=== PATIENT | male | born 1950 | race Caucasian/White ===

== ENCOUNTER 2017-02-20 11:25 | Emergency (ER) | payer MEDICARE, BC ==
[2017-02-20] MEDS ORDERED: Sodium Chloride 0.9% 1,000 ML IV ONE (12:43)
[2017-02-20] MEDS ORDERED: Sodium Chloride 0.9% 5 ML Syringe FLUSH PRN (12:43)
[2017-02-20 12:46] LABS: CHLORIDE,CL 100 mmol/L (98-115); SODIUM,NA 138 mmol/L (136-145)
--- NOTE | 2017-02-20 12:54 | EDM.PDOC ---
ED HPI GENERAL MEDICAL PROBLEM - General Chief Complaint: General Stated Complaint: HIGH BLOOD SUGAR Time Seen by Provider: 02/20/17 12:42 Source of Information: Reports: Patient History Limitations: Reports: No Limitations - History of Present Illness INITIAL COMMENTS - FREE TEXT/NARRATIVE: Patient is a 66-year-old gentleman who presents to the ER today with a complaint of weakness and dizziness. Symptoms have been present over the past 2 weeks intermittently. His diabetic medication was recently changed and is having difficulty controlling her glucose. Patient is typically seen in the clinic by Karen. Patient denies chest pain, shortness of breath, abdominal pain , headache, or fever. Onset: Gradual Duration: Week(s): Quality: Reports: Other (Dizziness with standing. Does not occur while lying flat or seated.) Severity: Mild Improves with: Reports: None Worsens with: Reports: None Context: Reports: Activity Associated Symptoms: Reports: Weakness - Related Data Allergies Allergy/AdvReac Type Severity Reaction Status Date / Time bee venom protein (honey bee) Allergy Swelling Verified 02/20/17 12:01 ciprofloxacin Allergy Nausea and Verified 02/20/17 12:13 Vomiting sulfamethoxazole Allergy Nausea and Verified 02/20/17 12:01 [From Bactrim] Vomiting trimethoprim [From Bactrim] Allergy Nausea and Verified 02/20/17 12:01 Vomiting Home Meds: Home Meds Albuterol [Ventolin HFA] 1 puff INH Q6HR PRN 02/20/17 [History] Allopurinol [Zyloprim] 300 mg PO DAILY 02/20/17 [History] Arformoterol [Brovana] 15 mcg NEB BID 02/20/17 [History] Aspirin [[place] Aspirin] 81 mg PO DAILY 02/20/17 [History] Budesonide [Pulmicort] 1 vial INH BID 02/20/17 [History] Ipratropium/Albuterol Sulfate [Iprat-Albut 0.5-3(2.5) MG/3 ML] 1 vial INH Q6HR PRN 02/20/17 [History] Losartan Potassium [Losartan Potassium] 25 mg PO DAILY 02/20/17 [History] Metoprolol Tartrate [Metoprolol Tartrate] 12.5 mg PO BID 02/20/17 [History] Omeprazole [Omeprazole] 20 mg PO BID 02/20/17 [History] Ranitidine HCl [Ranitidine HCl] 300 mg PO DAILY 02/20/17 [History] Simvastatin [Zocor] 40 mg PO DAILY 02/20/17 [History] glipiZIDE [Glipizide Xl] 20 mg PO DAILY 02/20/17 [History] metFORMIN HCl [Metformin HCl] 1,000 mg PO BID 02/20/17 [History] ED ROS GENERAL - Review of Systems Review Of Systems: ROS reveals no pertinent complaints other than HPI. Constitutional: Reports: Weakness, Fatigue HEENT: Reports: No Symptoms Respiratory: Reports: No Symptoms Cardiovascular: Reports: No Symptoms Endocrine: Reports: No Symptoms GI/Abdominal: Reports: No Symptoms : Reports: No Symptoms Musculoskeletal: Reports: No Symptoms Skin: Reports: No Symptoms Neurological: Reports: Dizziness Psychiatric: Reports: No Symptoms Hematologic/Lymphatic: Reports: No Symptoms Immunologic: Reports: No Symptoms ED EXAM, GENERAL - Physical Exam Exam: See Below Exam Limited By: No Limitations General Appearance: Alert, WD/WN, No Apparent Distress Eye Exam: Bilateral Eye: Normal Inspection Ears: Normal External Exam, Normal Canal, Normal TMs Nose: Normal Inspection, Normal Mucosa, No Blood Throat/Mouth: Normal Inspection, Normal Oropharynx, No Airway Compromise Head: Atraumatic, Normocephalic Neck: Normal Inspection, Supple Respiratory/Chest: No Respiratory Distress, Lungs Clear, Normal Breath Sounds, No Accessory Muscle Use, Chest Non-Tender Cardiovascular: Regular Rate, Rhythm, No Murmur GI/Abdominal: Normal Bowel Sounds, Soft, Non-Tender, No Organomegaly, No Distention, No Abnormal Bruit, No Mass Back Exam: Normal Inspection. No: CVA Tenderness (L), CVA Tenderness (R) Extremities: Normal Inspection, No Pedal Edema Neurological: Alert, Oriented, CN II-XII Intact, Normal Cognition, No Motor/ Sensory Deficits Psychiatric: Normal Affect Skin Exam: Warm, Dry, Intact, Normal Color, No Rash Lymphatic: No Adenopathy EKG INTERPRETATION EKG Date: 02/20/17 Time: 12:20 Rhythm: NSR Rate (Beats/Min): 83 [place]: Normal P-Wave: Present QRS: Normal ST-T: Normal QT: Normal Comparison: NA - No Prior EKG Course - Vital Signs Last Recorded V/S: Last Vital Signs Temp 97.7 F 02/20/17 11:52 Pulse 86 02/20/17 11:52 Resp 18 02/20/17 11:52 BP 132/82 02/20/17 11:52 Pulse Ox 93 L 02/20/17 11:52 - Orders/Labs/Meds Orders: Active Orders 24 hr Category Date Time Status EKG Documentation Completion [RC] ASDIRECTED Care 02/20/17 12:10 Active Peripheral IV Care [RC] . DIRECTED Care 02/20/17 12:43 Ordered COMPREHENSIVE METABOLIC PN,CMP [CHEM] Stat Lab 02/20/17 12:20 Received UA W/MICROSCOPIC [URIN] Stat Lab 02/20/17 12:08 Ordered Sodium Chloride 0.9% @ 999 MLS/HR (1000ml) Med 02/20/17 12:43 Ordered Sodium Chloride 0.9% [Normal Saline] 1,000 ml IV .BOLUS Sodium Chloride 0.9% [Syrex Flush] Med 02/20/17 12:43 Ordered 5 ml FLUSH Q8HR PRN Peripheral IV Insertion Adult [OM.PC] Routine Oth 02/20/17 12:43 Ordered EKG 12 Lead [EK] Routine Ther 02/20/17 12:09 Ordered Medication Orders Sodium Chloride (Syrex Flush) 5 ml FLUSH Q8HR PRN PRN Reason: Keep Vein Open Labs: Laboratory Tests 02/20/17 02/20/17 Range/Units 11:49 12:20 WBC 9.9 (5.0-10.0) 10^3/uL RBC 4.82 (4.50-6.00) 10^6/uL Hgb 14.4 (13.0-17.0) g/dL Hct 43.4 (40.0-52.0) % MCV 90.1 (82.0-92.0) fL MCH 29.8 (27.0-31.0) pg MCHC 33.1 (32.0-36.0) g/dL RDW 13.8 (11.5-14.5) % Plt Count 409 H (150-300) 10^3/uL MPV 7.5 (7.4-10.4) fL Neut % (Auto) 71.6 H (50.0-70.0) % Lymph % (Auto) 18.2 L (20.0-40.0) % [place] % (Auto) 6.6 (2.0-8.0) % Eos % (Auto) 3.3 H (1.0-3.0) % Baso % (Auto) 0.3 (0.0-1.0) % Neut # (Auto) 7.1 H (2.5-7.0) 10^3/uL Lymph # (Auto) 1.8 (1.0-4.0) 10^3/uL Haakon # (Auto) 0.7 (0.1-0.8) 10^3/uL Eos # (Auto) 0.3 (0.1-0.3) 10^3/uL Baso # (Auto) 0.0 (0.0-0.1) 10^3/uL POC Glucose 212 H (74-106) mg/dl Meds: Medications Generic Name Dose Route Start Last Admin Trade Name Freq PRN Reason Stop Dose Admin Sodium Chloride 1,000 mls @ 999 mls/hr 02/20/17 12:43 Normal Saline IV 02/20/17 13:43 .BOLUS ONE Sodium Chloride 5 ml 02/20/17 12:43 Syrex Flush FLUSH Q8HR PRN Keep Vein Open - Re-Assessments/Exams Free Text/Narrative Re-Assessment/Exam: 02/20/17 13:25 Patient afebrile, vital signs stable, nontoxic appearing. Patient was given 1 L normal saline IV. Accu-Chek now 165 glucose. Discussed with patient most likely side effects of glipizide. To include dizziness and fatigue. Patient will follow up with Karen next week. 02/20/17 13:31 Departure - Departure Time of Disposition: 13:37 Disposition: Home, Self-Care 01 Condition: Good Clinical Impression: Hyperglycemia Diabetes mellitus Qualifiers: Diabetes mellitus type: type 2 Diabetes mellitus complication status: without complication - Discharge Information Instructions: Type 2 Diabetes Mellitus, Adult, Hyperglycemia, [id number] Referrals: Karen Hollingsworth PA-C [Primary Care Provider] - Additional Instructions: FOLLOW UP WITH KAREN NEXT WEEK. RETURN TO ER SOONER IF SYMPTOMS CONTINUE - My Orders Last 24 Hours: My Active Orders 02/20/17 12:08 UA W/MICROSCOPIC [URIN] Stat 02/20/17 12:09 EKG 12 Lead [EK] Routine 02/20/17 12:10 EKG Documentation Completion [RC] ASDIRECTED 02/20/17 12:20 COMPREHENSIVE METABOLIC PN,CMP [CHEM] Stat 02/20/17 12:43 Peripheral IV Care [RC] . DIRECTED Sodium Chloride 0.9% @ 999 MLS/HR (1000ml) Sodium Chloride 0.9% [Normal Saline] 1,000 ml IV .BOLUS Sodium Chloride 0.9% [Syrex Flush] 5 ml FLUSH Q8HR PRN Peripheral IV Insertion Adult [OM.PC] Routine - Assessment/Plan Last 24 Hours: My Active Orders 02/20/17 12:08 UA W/MICROSCOPIC [URIN] Stat 02/20/17 12:09 EKG 12 Lead [EK] Routine 02/20/17 12:10 EKG Documentation Completion [RC] ASDIRECTED 02/20/17 12:20 COMPREHENSIVE METABOLIC PN,CMP [CHEM] Stat 02/20/17 12:43 Peripheral IV Care [RC] . DIRECTED Sodium Chloride 0.9% @ 999 MLS/HR (1000ml) Sodium Chloride 0.9% [Normal Saline] 1,000 ml IV .BOLUS Sodium Chloride 0.9% [Syrex Flush] 5 ml FLUSH Q8HR PRN Peripheral IV Insertion Adult [OM.PC] Routine Assessment:: Hyperglycemia. Diabetes mellitus.
== END 2017-02-20 13:55 | disposition home or self-care (01) ==
LOC: KA.ED 11:25
DX: E11.65 Type 2 diabetes mellitus with hyperglycemia (principal); Z79.84 Long term (current) use of oral hypoglycemic drugs; Z79.82 Long term (current) use of aspirin; Z79.899 Other long term (current) drug therapy; Z88.1 Allergy status to other antibiotic agents; Z88.2 Allergy status to sulfonamides; Z88.8 Allergy status to other drugs, medicaments and biological substances; Z91.030 Bee allergy status
CPT/HCPCS: 36415; 80053; 81001; 82962; 85025; 99285; J7030; 93005; 99284

== ENCOUNTER 2018-07-18 15:52 | Inpatient (IN) | payer MEDICARE, BC ==
[2018-07-18 16:38] LABS: O2 DELIVERY DEVICE NASAL CANNULA
[2018-07-18 16:45] LABS: BASE EXCESS ARTERIAL -1 mmol/L (-2-3); BICARBONATE,ARTERIAL 23.2 mmol/L (22-26); O2 SATURATION ARTERIAL 84 % (95-98); PCO2 ARTERIAL 36 mmHG (35-45); PO2 ARTERIAL 48 mmHG (80-105)
[2018-07-18] MEDS ORDERED: Albuterol/Ipratropium 3.0-0.5 MG/3 ML Neb Soln INH PRN (16:46)
[2018-07-18] MEDS ORDERED: Albuterol 8 GM Inhaler INH PRN (16:46)
[2018-07-18] MEDS ORDERED: Non-Formulary Medication 1 Each (Ciclopirox [Ciclopirox] 1 APPLIC) TOP SCH (17:00)
[2018-07-18] MEDS ORDERED: Sodium Chloride 0.9% 50 ML IV SCH ×2 (17:00→17:30)
[2018-07-18] MEDS ORDERED: Azithromycin 500 MG in Sodium Chloride 0.9% 250 ML IV SCH (17:00)
[2018-07-18 17:07] LABS: ANION GAP 17.7 mmol/L (5-15); CHLORIDE,CL 97 mmol/L (98-115); SODIUM,NA 138 mmol/L (136-145)
[2018-07-18] MEDS: methylPREDNISolone Sodium Succinate 125 MG/2 ML SDV IVPUSH SCH (17:45)
[2018-07-18] MEDS: metFORMIN 500 MG Tab PO SCH (18:07)
[2018-07-18] MEDS: Piperacillin/Tazobactam/Dext 3.375 GM in Premix Bag 1 BAG IV SCH (19:16)
[2018-07-18] MEDS: Arformoterol 15 MCG/2 ML Neb Soln NEB SCH (19:59)
--- NOTE | 2018-07-18 20:30 | CT ---
[id number] CT/CT Chest WO IV EXAM: CT Chest WO IV CLINICAL DATA: COPD,HYPOXIA. COMPARISON: Radiograph from June 27, 2018 FINDINGS: LUNGS: Changes of COPD, including both parenchymal emphysema and chronic bronchitis. Scattered areas of pleural/parenchymal scarring. No suspicious nodularity. No pneumonia, effusion, edema, or pneumothorax. HEART AND GREAT VESSELS: Coronary artery atherosclerosis. No pericardial effusion. Thoracic aorta atherosclerosis. No aneurysm. Mild central vascular congestion. MEDIASTINUM AND LYMPHATICS: No mediastinal or hilar lymphadenopathy. UPPER ABDOMINAL ORGANS: Gallbladder has been resected. BONES: Diffuse bone demineralization. Scattered changes of mild to moderate spondylosis diffusely throughout the spine. No fracture or osseous lesion. IMPRESSION: Changes of COPD, described above. No suspicious parenchymal nodularity. Dioni Kern MD 07/18/182026 Thank you for allowing us to participate in the care of your patient.
[2018-07-18] MEDS: Sodium Chloride 0.9% 250 ML IV SCH (20:34)
[2018-07-18] MEDS: Metoprolol Tartrate 25 MG Tab PO SCH (20:35)
[2018-07-18] MEDS: Allopurinol 100 MG Tab PO SCH (20:35)
[2018-07-18] MEDS: Budesonide 0.5 MG/2 ML Neb Susp INH SCH (20:39)
[2018-07-18] MEDS ORDERED: Omeprazole 20 MG Cap.CR PO SCH (21:00)
[2018-07-19] MEDS: methylPREDNISolone Sodium Succinate 125 MG/2 ML SDV IVPUSH SCH ×3 (00:40→17:13)
[2018-07-19] MEDS: Piperacillin/Tazobactam/Dext 3.375 GM in Premix Bag 1 BAG IV SCH ×4 (00:48→18:29)
[2018-07-19] MEDS: Sodium Chloride 0.9% 10 ML Syringe FLUSH PRN ×4 (00:49→17:14)
[2018-07-19] MEDS: Omeprazole 20 MG Cap.CR PO SCH (06:08)
[2018-07-19] MEDS: metFORMIN 500 MG Tab PO SCH ×2 (08:09→18:29)
[2018-07-19] MEDS: glipiZIDE 5 MG Tab.ER PO SCH (08:09)
[2018-07-19] MEDS: Aspirin 81 MG Tab.EC PO SCH (08:09)
[2018-07-19] MEDS: Simvastatin 20 MG Tab PO SCH (08:09)
[2018-07-19] MEDS: Losartan 25 MG Tab PO SCH (08:10)
[2018-07-19] MEDS: Metoprolol Tartrate 25 MG Tab PO SCH ×2 (08:10→20:31)
[2018-07-19 08:19] LABS: CHLORIDE,CL 98 mmol/L (98-115); SODIUM,NA 128 mmol/L (136-145)
[2018-07-19] MEDS: Arformoterol 15 MCG/2 ML Neb Soln NEB SCH ×2 (08:42→19:46)
[2018-07-19] MEDS ORDERED: Allopurinol 100 MG Tab PO SCH (09:00)
[2018-07-19] MEDS: Budesonide 0.5 MG/2 ML Neb Susp INH SCH ×2 (09:16→20:15)
[2018-07-19] MEDS: Sodium Chloride 0.9% 250 ML IV SCH (20:22)
[2018-07-19] MEDS: Allopurinol 100 MG Tab PO SCH (20:31)
[2018-07-20] MEDS: Piperacillin/Tazobactam/Dext 3.375 GM in Premix Bag 1 BAG IV SCH ×4 (01:32→18:27)
[2018-07-20] MEDS: methylPREDNISolone Sodium Succinate 125 MG/2 ML SDV IVPUSH SCH ×3 (01:37→17:00)
[2018-07-20] MEDS: Sodium Chloride 0.9% 10 ML Syringe FLUSH PRN ×4 (06:48→17:00)
[2018-07-20 07:53] LABS: O2 DELIVERY DEVICE NASAL CANNULA
[2018-07-20] MEDS: Omeprazole 20 MG Cap.CR PO SCH (07:56)
[2018-07-20 08:07] LABS: ANION GAP 17.9 mmol/L (5-15); CHLORIDE,CL 100 mmol/L (98-115); SODIUM,NA 140 mmol/L (136-145)
[2018-07-20 08:19] LABS: BICARBONATE,ARTERIAL 25.9 mmol/L (22-26); O2 SATURATION ARTERIAL 99 % (95-98); PCO2 ARTERIAL 40 mmHG (35-45); PO2 ARTERIAL 115 mmHG (80-105)
[2018-07-20 08:20] LABS: BASE EXCESS ARTERIAL 1 mmol/L (-2-3); O2 FLOW RATE 3 L/min
[2018-07-20] MEDS: Arformoterol 15 MCG/2 ML Neb Soln NEB SCH ×2 (08:33→20:34)
[2018-07-20] MEDS: Losartan 25 MG Tab PO SCH (08:38)
[2018-07-20] MEDS: metFORMIN 500 MG Tab PO SCH ×2 (08:38→18:27)
[2018-07-20] MEDS: glipiZIDE 5 MG Tab.ER PO SCH (08:38)
[2018-07-20] MEDS: Aspirin 81 MG Tab.EC PO SCH (08:38)
[2018-07-20] MEDS: Simvastatin 20 MG Tab PO SCH (08:38)
[2018-07-20] MEDS: Metoprolol Tartrate 25 MG Tab PO SCH ×2 (08:39→20:29)
[2018-07-20] MEDS: Budesonide 0.5 MG/2 ML Neb Susp INH SCH ×2 (09:00→20:53)
[2018-07-20] MEDS: Loperamide 2 MG Cap PO PRN (11:00)
[2018-07-20] MEDS: Sodium Chloride 0.9% 250 ML IV SCH (19:26)
[2018-07-20] MEDS: Allopurinol 100 MG Tab PO SCH (20:29)
[2018-07-21] MEDS: methylPREDNISolone Sodium Succinate 125 MG/2 ML SDV IVPUSH SCH ×2 (00:35→08:51)
[2018-07-21] MEDS: Piperacillin/Tazobactam/Dext 3.375 GM in Premix Bag 1 BAG IV SCH ×2 (00:35→06:29)
[2018-07-21] MEDS: Omeprazole 20 MG Cap.CR PO SCH (06:36)
[2018-07-21] MEDS: Sodium Chloride 0.9% 10 ML Syringe FLUSH PRN (07:43)
[2018-07-21 08:02] LABS: CHLORIDE,CL 99 mmol/L (98-115); SODIUM,NA 137 mmol/L (136-145)
[2018-07-21] MEDS: Budesonide 0.5 MG/2 ML Neb Susp INH SCH (08:33)
[2018-07-21] MEDS: Losartan 25 MG Tab PO SCH (08:33)
[2018-07-21] MEDS: glipiZIDE 5 MG Tab.ER PO SCH (08:33)
[2018-07-21] MEDS: Arformoterol 15 MCG/2 ML Neb Soln NEB SCH (08:46)
[2018-07-21] MEDS: Loperamide 2 MG Cap PO PRN (08:46)
[2018-07-21] MEDS: Aspirin 81 MG Tab.EC PO SCH (08:47)
[2018-07-21] MEDS: Metoprolol Tartrate 25 MG Tab PO SCH (08:49)
[2018-07-21] MEDS: metFORMIN 500 MG Tab PO SCH (08:50)
[2018-07-21] MEDS: Simvastatin 20 MG Tab PO SCH (08:54)
--- NOTE | 2018-07-21 09:21 | PN ---
07/19/2018 PATIENT NAME: MAITE KEARNS SUBJECTIVE: This is a 67-year-old male who was admitted yesterday for a COPD exacerbation. The patient was having a hard time getting enough air. He was hypoxic but not hypercapnic. His ABG showed a pH of 7.41, pCO2 of 36, PO2 of 48, bicarb of 23 and ABG O2 saturation of 84%. He is currently on 2 L of oxygen and saturating at 97%. He is much less short of breath. And does not feel that he is as wheezy as he was yesterday. His white count was elevated. We do have blood cultures as well as sputum culture pending. He has been covered with one dose of azithromycin as well as vancomycin and Zosyn. White count yesterday was 15,000, today is 9000. Hemoglobin has dropped from 14-12.8. He does not typically have an anemia. We will watch this tomorrow to see if it is trending downward. If so, we will add iron studies. His comprehensive metabolic panel shows sodium of 128, whereas yesterday it was 138. The lactic acid yesterday was 3.6, which is somewhat concerning. Glucose is 285. He is diabetic and is covered with metformin as well as glipizide. He does report about a 50% improvement from yesterday. He is also receiving Solu- Medrol 125 mg IV t.i.d. This will be continued. OBJECTIVE: VITAL SIGNS: Temp 97.8, pulse 81, respirations 16, blood pressure 123/79, O2 saturation is 95-97% on 3 L of oxygen. Of note, an improvement in his pulse rate, he was tachycardic yesterday with a pulse rate of 130s to 140s. Today, he has a normal heart rate of 80. SKIN: Warm and dry to touch. CARDIAC: Reveals S1, S2 to be normal. Rate and rhythm are regular. No murmur, click, or gallop is auscultated. LUNGS: Clear without rales, wheezes, or rhonchi. There is no pedal edema. IMPRESSION: Exacerbation of chronic obstructive pulmonary disease. Question infective. He will continue on Zosyn as well as vancomycin. He will also continue on Solu-Medrol. Blood cultures as well as sputum cultures are pending. He does have an elevated lactate of 3.6. This will be repeated tomorrow. Also repeat ABGs tomorrow. He does seem to be improving. PLAN: Plan is to keep him through the weekend and possibly discharge him on Saturday. He is agreeable with this plan of care. I will contact his daughter Dori to give her an update on the patient's progress. /[id number]/MODL
--- NOTE | 2018-07-21 09:21 | PN ---
07/20/2018 PATIENT NAME: MAITE KEARNS This is a 67-year-old male who is being seen today for inpatient rounds. He was admitted to the hospital on 07/18/2018, for exacerbation of COPD. He was placed on intravenous steroids as well as IV antibiotics namely Zosyn as well as vancomycin. His blood cultures have been negative x2. He is improving. He does feel a little bit more wheezy today, however, feels less short of breath. He is tolerating periods of activity with ambulating in the hallways. He is oxygenating well on 3 L of oxygen. He did have repeat ABGs this morning, which have improved considerably from his admission ABGs. We actually decreased his oxygen to 2 L/minute on nasal cannula. ABGs today showed pH 7.42, pCO2 of 40, PO2 of 115 (previously 48), bicarb was 27 and ABG O2 saturation was 99%. He does have an elevated white count today. I believe that this is related to his intravenous steroids. His white count was slightly elevated at 15,000 on admission and normalized yesterday to 9300. Today, his white count is 17,870. I do believe this is steroid related. He has not had a fever whatsoever. He did have a vancomycin trough today that was 15.1, which is therapeutic. His initial lactic acid was 3.6 and now has improved to 2.7. CMP is basically normal with the exception of an elevated glucose. The patient does have a history of diabetes mellitus. The patient is concerned that he has developed diarrhea. He has had 4 loose stools during the night. There is no blood in the stools. I am not sure why he has developed diarrhea, but did add a C. diff as well as a Hemoccult of the stool today. PHYSICAL EXAMINATION: VITAL SIGNS: Show temp of 96, pulse of 82, respirations 18, blood pressure 128/72, O2 saturation is 95% on 2 L of oxygen. SKIN: Warm and dry to touch. CARDIAC: Reveals S1, S2 to be normal. Rate and rhythm are regular. No murmur, click, or gallop is auscultated. LUNGS: Do have diffuse wheezing. No rhonchi or rales. ABDOMEN: Soft, nontender with hyperactive bowel sounds. There is no pedal edema. IMPRESSION: 1. Exacerbation of chronic obstructive pulmonary disease. He has been covered with antibiotics with negative blood cultures to date. We reduce his Solu- Medrol from 125 mg t.i.d. to 80 mg t.i.d. intravenously. He does seem to be improving. Barring any changes in the patient's status, we will plan on discharging him home tomorrow. He is oxygenating much better than he was 2 days ago. 2. Diabetes mellitus. His blood sugars have been elevated. His most recent A1c was 7.9%. This was in 04/2018. We will continue to monitor this. His glucose levels will most likely be elevated for the short term due to steroids. 3. Diarrhea. Hemoccult of the diarrhea stool was negative. C. difficile was also negative. He may have p.r.n. Imodium for symptomatic relief. We will continue to watch him closely. We will repeat labs in the morning and plan for discharge barring any changes in his condition. /[id number]/MODL
--- NOTE | 2018-07-21 09:21 | PN ---
07/19/2018 PATIENT NAME: MAITE KEARNS ADDENDUM: He did have a CT of the chest yesterday, which shows diffuse bone demineralization, scattered changes of mild to moderate spondylosis diffusely through the spine. There is no suspicious nodularity. No pneumonia, effusion, edema, or pneumothorax. There are overall changes of COPD, including both parenchymal emphysema and chronic bronchitis. There are scattered areas of pleural/parenchymal scarring. I have communicated my findings to Dr. Jayde Mendoza and will see if she has any suggestions for changes or additions to care. /[id number]/MODL
--- NOTE | 2018-07-22 09:13 | DISCH ---
DISCHARGE DIAGNOSIS: 1. Chronic obstructive pulmonary disease exacerbation, considerably improved with IV steroids as well as antibiotics. He will need no further antibiotic therapy as his blood cultures were negative x2. He did have an influenza nasopharyngeal swab which was negative on admission as well. He will be sent home with a tapering dose of prednisone to be started at 60 mg daily for three days, then 40 mg daily for three days, then 20 mg daily for three days, followed by 10 mg for three days, and then stop. He will follow up with me in the clinic in one week's time. He will follow up sooner if needed. 2. Diabetes mellitus. His glucose readings have been elevated secondary to steroids. 3. Diarrhea. This is improved. 4. Gastroesophageal reflux disease, stable. 5. History of gout, stable with allopurinol. 6. Hypercholesterolemia, stable with simvastatin. 7. Hypertension, stable on a combination regimen of losartan as well as metoprolol. HOSPITAL COURSE: This is a 67-year-old male who was admitted to the hospital on 07/18/2018 for a COPD exacerbation. He was treated with one dose of azithromycin and then later changed to Zosyn as well as vancomycin. All blood cultures have been negative. He has been afebrile. He will be discharged today without any additional antibiotic therapy. He was treated with intravenous steroids. His condition has improved considerably. He still has some wheezing and some coughing; however, he is no longer hypoxic. PHYSICAL EXAM ON DISCHARGE: VITAL SIGNS: On examination, temp is 98.3, pulse 81, respirations 18, blood pressure 127/80, and his O2 saturation is 94% on room air. SKIN: Warm and dry to touch. CARDIAC: Exam reveals S1, S2 to be normal. Rate and rhythm are regular. No murmur, click, or gallop is auscultated. LUNGS: He does have inspiratory as well as expiratory wheezes throughout all lung gentile. He does not have any rales or rhonchi. ABDOMEN: Soft, nontender with positive bowel sounds in all four quadrants. EXTREMITIES: There is no pedal edema. SIGNIFICANT LABS XRAYS AND CONSULTATION FINDINGS: Significant lab data from today, his white blood cell count is elevated at 15,800. I believe this is steroid related. He did have an elevated white count of 15,140 on admission which corrected the next day to 9310 and then went up again on 07/20/2018. I do believe this is related, as stated earlier, to steroids. ABGs improved considerably. We were able to titrate his oxygen from 3 L/minute to 2 L/minute. The remainder of his labs are stable. He does have elevated glucose readings also secondary to steroids. The patient had diarrhea yesterday. The diarrhea stools were Hemoccult negative. C. difficile was also negative. We did give him Imodium with some improvement of the diarrhea. /[id number]/MODL
== END 2018-07-21 12:15 | disposition home or self-care (01) | DRG 192 ==
LOC: KA.OC 15:52 → KA.MS 16:10
DX: J44.1 Chronic obstructive pulmonary disease with (acute) exacerbation (principal); E11.9 Type 2 diabetes mellitus without complications; R05 Cough; R06.2 Wheezing; M10.9 Gout, unspecified; I10 Essential (primary) hypertension; K21.9 Gastro-esophageal reflux disease without esophagitis; E78.00 Pure hypercholesterolemia, unspecified; R09.02 Hypoxemia; T38.0X5A Adverse effect of glucocorticoids and synthetic analogues, initial encounter; D72.829 Elevated white blood cell count, unspecified; R19.7 Diarrhea, unspecified; Z88.1 Allergy status to other antibiotic agents; Z91.030 Bee allergy status; Z79.899 Other long term (current) drug therapy; Z79.82 Long term (current) use of aspirin; Z79.84 Long term (current) use of oral hypoglycemic drugs
CPT/HCPCS: 36415; 36600; 71250; 80053; 80202; 82272; 82803; 83605; 85025; 87040; 87324; 87804; 94640; A9270-GY; J0456; J2543; J2930; J3370; J7050

== ENCOUNTER 2019-01-12 12:32 | Observation (INO) | payer MEDICARE, BC ==
[2019-01-12] MEDS ORDERED: Dextrose 5%-0.45% NaCl 1,000 ML IV SCH (12:45)
[2019-01-12] MEDS ORDERED: Sodium Chloride 0.9% 10 ML Syringe FLUSH PRN (12:45)
[2019-01-12] MEDS ORDERED: Albuterol/Ipratropium 3.0-0.5 MG/3 ML Neb Soln INH PRN (12:49)
[2019-01-12] MEDS ORDERED: Albuterol 8 GM Inhaler INH PRN ×2 (12:49)
[2019-01-12] MEDS ORDERED: Non-Formulary Medication 1 Each (Ciclopirox [Ciclopirox] 1 APPLIC) TOP SCH (13:00)
[2019-01-12 13:30] LABS: ANION GAP 20.2 mmol/L (5-15)
[2019-01-12] MEDS ORDERED: Iopamidol 755 Mg/ML 100 ML Bottle IV ONE ×2 (13:49→14:12)
[2019-01-12] MEDS ORDERED: Sodium Chloride 0.9% 50 ML IV SCH ×2 (14:00→14:15)
[2019-01-12] MEDS ORDERED: Diatrizoate Meglumine/Diatrizoate Sodium 37% 120 ML Bottle PO ONE (14:12)
[2019-01-12] MEDS ORDERED: Sodium Chloride 0.9% 500 ML IV SCH (14:30)
--- NOTE | 2019-01-12 14:53 | CT ---
[id number] CT/CT Abdomen Pelvis W IV EXAM: ABDOMEN AND PELVIS CT WITH CONTRAST INDICATION: Abdominal pain. COMPARISON: None. DISCUSSION: 9 mm nonobstructing calculus lower pole right kidney and 2 mm nonobstructing calculus upper pole right kidney. Wedge-shaped defects in the right kidney may relate to prior infection or infarcts. Atherosclerotic plaque scattered throughout the aorta and its major branches with partially characterized stenosis of the external iliac and common femoral arteries bilaterally. Fatty infiltration of the liver. Cholecystectomy. A few scattered pancreatic calcifications could relate to underlying chronic pancreatitis. There are few scattered colonic diverticula without evidence of diverticulitis. Small fat-containing bilateral inguinal hernias. The adrenal glands, spleen, and small bowel are normal in appearance. The appendix is not identified, but reportedly has been removed. IMPRESSION: 1. No acute findings or definite explanation for abdominal pain. 2. Multiple chronic findings as described. Miguelangel Monte MD 01/12/19 [id number] Thank you for allowing us to participate in the care of your patient.
[2019-01-12] MEDS: Sodium Chloride 0.9% 1,000 ML IV SCH (16:31)
[2019-01-12] MEDS: Metoprolol Tartrate 25 MG Tab PO SCH (20:16)
[2019-01-12] MEDS: Budesonide 0.5 MG/2 ML Neb Susp INH SCH (20:17)
[2019-01-12] MEDS ORDERED: Allopurinol 100 MG Tab PO SCH (21:00)
[2019-01-13] MEDS: Sodium Chloride 0.9% 1,000 ML IV SCH (00:10)
[2019-01-13] MEDS ORDERED: Omeprazole 20 MG Cap.CR PO SCH (07:30)
[2019-01-13] MEDS: Metoprolol Tartrate 25 MG Tab PO SCH (08:58)
[2019-01-13] MEDS ORDERED: glipiZIDE 5 MG Tab.ER PO SCH (09:00)
[2019-01-13] MEDS ORDERED: Terbinafine 250 MG Tab PO SCH ×2 (09:00)
[2019-01-13] MEDS ORDERED: Losartan 25 MG Tab PO SCH (09:00)
[2019-01-13] MEDS ORDERED: Simvastatin 20 MG Tab PO SCH (09:00)
[2019-01-13] MEDS ORDERED: Aspirin 81 MG Tab.EC PO SCH (09:00)
[2019-01-13] MEDS ORDERED: Cholecalciferol (Vitamin D3) 25 MCG Tab PO SCH (09:00)
[2019-01-13] MEDS ORDERED: [UNRECOGNIZED DRUG - REMARK] PO SCH (09:00)
[2019-01-13 09:14] LABS: ANION GAP 12.8 mmol/L (5-15); CHLORIDE,CL 104 mmol/L (98-115); SODIUM,NA 140 mmol/L (136-145)
[2019-01-13] MEDS ORDERED: Sodium Chloride 0.9% Inhalation Soln 3 ML Neb ONE (09:18)
[2019-01-13] MEDS: Budesonide 0.5 MG/2 ML Neb Susp INH SCH (10:05)
[2019-01-13] MEDS ORDERED: Budesonide 0.5 MG/2 ML Neb Susp NEB SCH (20:00)
[2019-01-13] MEDS ORDERED: Arformoterol 15 MCG/2 ML Neb Soln INH SCH (20:00)
--- NOTE | 2019-01-14 10:07 | DISCH ---
HOSPITAL COURSE: This is a 68-year-old male who was admitted yesterday with gastroenteritis as well as dehydration. He has received intravenous fluids over the course of the past 24 hours and has responded nicely. White count was elevated on admission at 11.59, now normalized at 8.43. BUN was normal yesterday at 22, creatinine was elevated at 1.22. Potassium was elevated at 5.8. These values were thought to be elevated secondary to dehydration. The patient's potassium has normalized today at 4.7. BUN and creatinine are normal at 14 and 0.89 with a GFR of greater than 50. The patient is feeling better. Apparently has a family member who is not doing well from a medical standpoint. The patient would like to be available to be with him if his health takes a turn for the worst. The patient had a CT of the abdomen yesterday, which shows no acute findings or definite explanation for abdominal pain. There were some multiple chronic findings including a 9 mm nonobstructing calculus lower pole of the kidney in 2 mm obstructive calculus upper pole of the right kidney. He does have a fatty infiltration of the liver. He has had a cholecystectomy in the past. There were a few scattered colonic diverticula without evidence of diverticulitis. The patient has been eating well and drinking well also. He did have some nausea yesterday following the CT scan, however, has had no nausea, vomiting, or diarrhea since admission. The patient does have a history of diabetes mellitus and is taking both glipizide and metformin. His metformin has been held for [address] scan. PHYSICAL EXAMINATION: VITAL SIGNS: On examination, temp is 98, pulse 85, respirations 20, blood pressure 125/77, oxygen saturation is 99%. The patient does use oxygen continuously at home. SKIN: Warm and dry to touch. CARDIAC: Reveals S1 and S2 to be normal. Rate and rhythm are regular. No murmur, click, or gallop is auscultated. LUNGS: Clear without rales, wheezes, or rhonchi. ABDOMEN: Soft, nontender. Bowel sounds present in all four quadrants. There is no pedal edema. IMPRESSION: 1. Gastroenteritis with dehydration, improved with normalization of elevated lab values from yesterday, namely renal function and potassium. 2. Diabetes mellitus, well controlled. 3. Chronic obstructive pulmonary disease. He will continue his same chronic obstructive pulmonary disease regimen as before. 4. Gastroesophageal reflux disease. He will continue PPI therapy as before. 5. Hypertension, stable. He will continue losartan. He was instructed to drink plenty of fluids. He will hold his metformin until tomorrow morning. At that point, he can resume taking metformin as before. He will follow up with me in 7-10 days in the clinic. There were no changes in his home medications. /[id number]/MODL
[2019-01-14] MEDS ORDERED: metFORMIN 500 MG Tab PO SCH (18:00)
== END 2019-01-13 13:15 | disposition home or self-care (01) ==
LOC: KA.MS 12:36 → UNDOADMOB 12:36 → KA.MS 12:45
DX: K52.9 Noninfective gastroenteritis and colitis, unspecified (principal); E86.0 Dehydration; E87.5 Hyperkalemia; I10 Essential (primary) hypertension; E11.9 Type 2 diabetes mellitus without complications; E78.00 Pure hypercholesterolemia, unspecified; E55.9 Vitamin D deficiency, unspecified; J44.9 Chronic obstructive pulmonary disease, unspecified; K21.9 Gastro-esophageal reflux disease without esophagitis; K76.0 Fatty (change of) liver, not elsewhere classified; K57.30 Diverticulosis of large intestine without perforation or abscess without bleeding; N20.0 Calculus of kidney; Z88.1 Allergy status to other antibiotic agents; Z91.030 Bee allergy status; Z99.81 Dependence on supplemental oxygen; Z87.891 Personal history of nicotine dependence; Z79.84 Long term (current) use of oral hypoglycemic drugs; Z79.51 Long term (current) use of inhaled steroids; Z79.82 Long term (current) use of aspirin; Z79.899 Other long term (current) drug therapy
CPT/HCPCS: 36415; 74177; 80053; 85025; 94640; 96360; 96361; A9270-GY; G0378; J7030; J7040; J7050; Q9963; Q9967

== ENCOUNTER 2019-02-16 12:48 | Observation (INO) | payer MEDICARE, BC ==
[2019-02-16] MEDS ORDERED: Sodium Chloride 0.9% 10 ML Syringe FLUSH PRN (13:04)
[2019-02-16] MEDS ORDERED: Albuterol 8 GM Inhaler INH PRN (13:57)
[2019-02-16] MEDS: Sodium Chloride 0.9% 1,000 ML IV SCH ×2 (14:00→22:04)
--- NOTE | 2019-02-16 14:07 | CR ---
[id number] RAD/RAD Chest PA And Lateral EXAM: RAD Chest PA And Lateral INDICATION: SHORTNESS OF BREATH. COMPARISON: Chest CT from July 18, 2018. Radiograph from June 27, 2018. DISCUSSION: Cardiomediastinal silhouette is normal in size and contour. COPD. No infiltrate, effusion, pneumothorax, or edema. IMPRESSION: No acute findings or significant change from the prior examination. Dioni Kern MD 02/16/19 1403 Thank you for allowing us to participate in the care of your patient.
[2019-02-16 14:21] LABS: ANION GAP 18.5 mmol/L (5-15); CHLORIDE,CL 104 mmol/L (98-115); SODIUM,NA 145 mmol/L (136-145)
[2019-02-16] MEDS: METFORMIN HCL 1000 MG PO SCH (17:54)
[2019-02-16] MEDS: METOPROLOL TARTRATE 25 MG PO SCH (20:22)
[2019-02-16] MEDS: BUDESONIDE INH SCH (20:28)
[2019-02-16] MEDS: ARFORMOTEROL 15 MCG/2 ML INH SCH (20:28)
[2019-02-16] MEDS ORDERED: SIMVASTATIN 40 MG PO SCH (21:00)
[2019-02-16] MEDS ORDERED: MELATONIN 3 MG PO SCH (21:00)
[2019-02-16] MEDS ORDERED: ALLOPURINOL 300 MG PO SCH (21:00)
[2019-02-17] MEDS ORDERED: Ondansetron 4 MG Tab.DIS PO PRN (03:00)
[2019-02-17] MEDS: ARFORMOTEROL 15 MCG/2 ML INH SCH (07:35)
[2019-02-17] MEDS: METFORMIN HCL 1000 MG PO SCH (08:00)
[2019-02-17] MEDS: BUDESONIDE INH SCH (08:33)
[2019-02-17] MEDS ORDERED: OMEPRAZOLE 20 MG PO SCH (09:00)
[2019-02-17] MEDS ORDERED: Aspirin 81 MG Tab.EC PO SCH (09:00)
[2019-02-17] MEDS ORDERED: LOSARTAN 25 MG PO SCH (09:00)
[2019-02-17] MEDS ORDERED: Cholecalciferol (Vitamin D3) 25 MCG Tab PO SCH (09:00)
[2019-02-17] MEDS ORDERED: GLIPIZIDE 10 MG PO SCH (09:00)
[2019-02-17] MEDS ORDERED: TERBINAFINE HCL 250 MG PO SCH (09:00)
[2019-02-17] MEDS: METOPROLOL TARTRATE 25 MG PO SCH (09:01)
--- NOTE | 2019-02-18 12:13 | DISCH ---
HOSPITAL COURSE: This is a 68-year-old male, who was admitted to the hospital yesterday with increasing shortness of breath, dull chest pain, and lightheadedness. The patient had been feeling this way over the past weekend. The patient was clinically dehydrated. He did receive intravenous fluids overnight and does feel better today. He reports being nauseated through the night. He did receive ondansetron which was effective, but took over an hour to start working. The patient and I discussed him being on observation and possibly going home today if he felt better and he would like to continue with this plan. Chest x-ray and EKG from yesterday were stable. Labs from yesterday were stable as well with a normal troponin. Labs were not repeated today as all of his labs were normal on admission yesterday. PHYSICAL EXAMINATION: VITAL SIGNS: He is afebrile, pulse is 82, respirations 16, blood pressure 100/70, O2 saturation is 93% on 2 L of oxygen per nasal cannula. SKIN: Warm and dry to touch. CARDIAC: Reveals S1, S2 to be normal. Rate and rhythm are regular. No murmur, click, or gallop auscultated. LUNGS: Clear without rales, wheezes, or rhonchi. ABDOMEN: Soft, nontender. Bowel sounds present in all four quadrants. There is no pedal edema. IMPRESSION: 1. Chest pain, improved with normal troponin and EKG. 2. Chronic obstructive pulmonary disease. This is an ongoing chronic problem for the patient. He is oxygen dependent. He will continue his same treatment regimen. 3. Dehydration. This is improved clinically with IV fluids. The patient will be discharged home today. He will be discharged with an as-needed prescription for ondansetron ODT 8 mg to be taken every 6 hours as needed for nausea. He will follow up with me in 7-10 days. If he has any questions or concerns, he was encouraged to call the clinic or the hospital. /[id number]/MODL
== END 2019-02-17 12:35 | disposition home or self-care (01) ==
LOC: KA.MS 12:48
DX: R07.9 Chest pain, unspecified (principal); J44.9 Chronic obstructive pulmonary disease, unspecified; E86.0 Dehydration; M10.9 Gout, unspecified; E11.9 Type 2 diabetes mellitus without complications; I10 Essential (primary) hypertension; K21.9 Gastro-esophageal reflux disease without esophagitis; E78.00 Pure hypercholesterolemia, unspecified; E55.9 Vitamin D deficiency, unspecified; B35.1 Tinea unguium; Z99.81 Dependence on supplemental oxygen; Z79.899 Other long term (current) drug therapy; Z79.84 Long term (current) use of oral hypoglycemic drugs; Z87.891 Personal history of nicotine dependence; Z88.2 Allergy status to sulfonamides; Z88.1 Allergy status to other antibiotic agents; Z91.030 Bee allergy status; Z79.82 Long term (current) use of aspirin
CPT/HCPCS: 36415; 71046; 80053; 84484; 85025; 93005; 94640; 96360; 96361; A9270-GY; G0378; J7030

== ENCOUNTER 2020-01-22 14:35 | Observation (INO) | payer MEDICARE, BC ==
[2020-01-22] MEDS ORDERED: Sodium Chloride 0.9% 10 ML Syringe FLUSH PRN ×2 (15:59→16:15)
[2020-01-22] MEDS ORDERED: Albuterol 8 GM Inhaler INH PRN (16:19)
[2020-01-22] MEDS ORDERED: Ondansetron 4 MG Tab.DIS PO PRN (16:36)
[2020-01-22] MEDS: Sodium Chloride 0.9% 1,000 ML IV SCH (16:44)
[2020-01-22 16:58] LABS: ANION GAP 14.9 mmol/L (5-15); CHLORIDE,CL 98 mmol/L (98-115); SODIUM,NA 136 mmol/L (136-145)
[2020-01-22] MEDS: metFORMIN 500 MG Tab PO SCH (17:47)
[2020-01-22] MEDS: Simvastatin 20 MG Tab PO SCH (21:20)
[2020-01-22] MEDS: Allopurinol 100 MG Tab PO SCH (21:21)
[2020-01-22] MEDS: Metoprolol Tartrate 25 MG Tab PO SCH (21:21)
[2020-01-22] MEDS: Budesonide 0.5 MG/2 ML Neb Susp INH SCH (21:29)
[2020-01-22] MEDS: Arformoterol 15 MCG/2 ML Neb Soln INH SCH (21:30)
[2020-01-23] MEDS ORDERED: Melatonin 3 MG Tab PO PRN ×2 (01:50→08:55)
[2020-01-23] MEDS: Sodium Chloride 0.9% 1,000 ML IV SCH (06:09)
[2020-01-23 07:57] LABS: CHLORIDE,CL 105 mmol/L (98-115); SODIUM,NA 141 mmol/L (136-145)
[2020-01-23] MEDS: Budesonide 0.5 MG/2 ML Neb Susp INH SCH ×3 (08:25→20:10)
[2020-01-23] MEDS: Metoprolol Tartrate 25 MG Tab PO SCH ×2 (08:26→20:05)
[2020-01-23] MEDS: Aspirin 81 MG Tab.EC PO SCH (08:27)
[2020-01-23] MEDS: metFORMIN 500 MG Tab PO SCH ×2 (08:27→18:25)
[2020-01-23] MEDS: glipiZIDE 5 MG Tab.ER PO SCH (08:27)
[2020-01-23] MEDS: Omeprazole 20 MG Cap.CR PO SCH (08:27)
[2020-01-23] MEDS: Cholecalciferol (Vitamin D3) 25 MCG Tab PO SCH (08:28)
[2020-01-23] MEDS: Arformoterol 15 MCG/2 ML Neb Soln INH SCH ×2 (08:29→20:09)
--- NOTE | 2020-01-23 11:56 | PN ---
01/23/2020 PATIENT NAME: MAITE KEARNS HISTORY OF PRESENT ILLNESS: This is 69-year-old male who presents to the clinic yesterday, feeling as though he was going to pass out. His orthostatic blood pressures were normal. His blood pressure was actually quite good at 150/85. The patient states that he felt like as though he was going to pass out when he had gotten up from his chair after sitting for a while and was walking to the bathroom. The patient has a complicated medical history including gout, COPD, diabetes mellitus, hypertension, hypercholesterolemia, gastroesophageal reflux disease, and vitamin D deficiency. He is oxygen dependent at home and is unable to move around a lot and I believe he is deconditioned. His admission lab work showed a mild elevation of his white blood cell count of 11.77. Hemoglobin was 12.7. White count normalized today at 9.23. Hemoglobin went down to 11.2. Comprehensive metabolic panel was normal with the exception of a low calcium of 8.2. He was tested for COVID-19 prior to admission was negative. The patient states he did not sleep very well last night. He is eating and drinking. I did discontinue his IV fluids today. The patient does take 6 mg of melatonin at home, which is higher than the p.r.n. dose that we have on a standing orders here. This will be changed as well. 12-lead EKG was performed on admission, reviewed, and showed normal sinus rhythm with a rate of 80 beats per minute; good R-wave progression throughout the precordial leads; no ectopics or conduction delays. No acute ST-T wave changes. He has monitored per telemetry and has remained in normal sinus rhythm with an acceptable rate of 70 to 80. PHYSICAL EXAMINATION: VITAL SIGNS: Temperature is 98, pulse 75, respirations 20, blood pressure 148/86, O2 saturation is 97% on 2 L of oxygen. SKIN: Pale, warm, dry to touch. HEART AND LUNGS: Normal. ABDOMEN: Soft, nontender. Bowel sounds present in all 4 quadrants. EXTREMITIES: There is no pedal edema. IMPRESSION AND PLAN: Lightheadedness, this seems to have improved. We will discontinue his IV fluids today, monitor him for another 24 hours and plan to discharge him for tomorrow. His lab work is stable. He has a fall risk at home and may need to have some decision made as far as continuation of independent living. At this point, he is not ready to visit this. We did sign documentation enough to do that he is a DNR/DNI. /[id number]/MODL
[2020-01-23] MEDS: Allopurinol 100 MG Tab PO SCH (20:04)
[2020-01-23] MEDS: Simvastatin 20 MG Tab PO SCH (20:05)
[2020-01-24] MEDS: metFORMIN 500 MG Tab PO SCH (08:12)
[2020-01-24] MEDS: glipiZIDE 5 MG Tab.ER PO SCH (08:13)
[2020-01-24] MEDS: Omeprazole 20 MG Cap.CR PO SCH (08:14)
[2020-01-24] MEDS: Aspirin 81 MG Tab.EC PO SCH (08:14)
[2020-01-24] MEDS: Metoprolol Tartrate 25 MG Tab PO SCH (08:15)
[2020-01-24] MEDS: Cholecalciferol (Vitamin D3) 25 MCG Tab PO SCH (08:15)
[2020-01-24 08:23] LABS: ANION GAP 12.8 mmol/L (5-15); CHLORIDE,CL 104 mmol/L (98-115); SODIUM,NA 140 mmol/L (136-145)
[2020-01-24] MEDS: Arformoterol 15 MCG/2 ML Neb Soln INH SCH (09:39)
[2020-01-24] MEDS: Budesonide 0.5 MG/2 ML Neb Susp INH SCH (09:39)
--- NOTE | 2020-01-24 12:44 | DISCH ---
This is a 69-year-old male who presented to the clinic on 01/22/2020 with dizziness and a feeling of presyncope. His orthostatic blood pressures in the clinic actually went up with position changes. The patient reported at home he felt as though he was going to pass out when he got up from his chair while sitting for a while and was walking to the bathroom. The patient has a complicated medical history including gout, COPD, diabetes mellitus, hypertension, hypercholesterolemia, gastroesophageal reflux disease, and vitamin D deficiency. He is oxygen-dependent at home and is unable to move around a lot. I believe he is deconditioned. Initially, his white blood cell count was mildly elevated, however, this normalized. Hemoglobin was 11.2 yesterday. Metabolic panel is basically normal with the exception of a calcium of 8.2 yesterday. COVID-19 testing was negative on admission. The night before last, the patient states that he did not sleep very well. He currently takes melatonin 6 mg at bedtime. We did change the order to allow him to have the 6 mg he is accustomed to taking at home. 12-lead EKG was performed on admission and reviewed and showed normal sinus rhythm with a rate of 80 beats per minute, good R-wave progression throughout the precordial leads; no ectopics or conduction delays. No acute ST or T wave changes. He has been monitored per telemetry and has maintained a normal sinus rhythm with an acceptable rate of 70-90 with no ectopics. His IV fluids were discontinued yesterday. Significant lab data from today includes a white blood cell count slightly elevated at 10.52. Comprehensive metabolic panel was normal with the exception of hypoglycemia with blood sugar of 61. The patient states he has been eating differently in the hospital. When asked to elaborate, the patient states he is eating cake and cookies and crackers like he does at home. We did discuss possibly getting meals on wheels delivered for this patient for more balanced meal at least once a day. The patient is feeling better, he slept better last night. He is ready for discharge. PHYSICAL EXAMINATION: VITAL SIGNS: Temp is 97.7, pulse 70, respirations 18, blood pressure 118/65, oxygen saturation is 97% on room air. SKIN: Warm and dry to touch. CARDIAC: Reveals S1, S2 to be normal. Rate and rhythm are regular. No murmur, click, or gallop is auscultated. LUNGS: Clear. ABDOMEN: Soft, nontender. Bowel sounds present in all 4 quadrants. EXTREMITIES: There is no pedal edema. IMPRESSION: Dizziness, etiology unclear. The patient will follow up with me in 1 week's time. He will be scheduled for an MRI of the brain as well as a carotid ultrasound and echocardiogram to complete a workup for dizziness. The patient has quite a few comorbid conditions including gout, COPD, diabetes mellitus, hypertension, hypercholesterolemia, gastroesophageal reflux disease, and vitamin D deficiency. He is oxygen-dependent at home and is quite deconditioned. I did recommend that he at least consider getting meals on wheels delivered to his home so he is eating a more balanced diet. He will consider this. Whether he will followthrough with it or not remains to be seen. There may be a point in time where he will have to consider a different living arrangement rather than living at home. Due to his deconditioning and this episodic dizziness, he is at risk for fall. He will follow up with me in 1 week's time. No changes were made to his home medication regimen. Further diagnostic testing will be scheduled as an outpatient. /[id number]/MODL
== END 2020-01-24 13:07 | disposition home or self-care (01) ==
LOC: KA.OC 14:35 → KA.MS 15:28
DX: R42 Dizziness and giddiness (principal); R55 Syncope and collapse; J44.9 Chronic obstructive pulmonary disease, unspecified; M10.9 Gout, unspecified; E11.9 Type 2 diabetes mellitus without complications; Z20.828 Contact with and (suspected) exposure to other viral communicable diseases; I10 Essential (primary) hypertension; E78.00 Pure hypercholesterolemia, unspecified; K21.9 Gastro-esophageal reflux disease without esophagitis; E55.9 Vitamin D deficiency, unspecified; Z66 Do not resuscitate; Z99.81 Dependence on supplemental oxygen; Z79.899 Other long term (current) drug therapy; Z79.84 Long term (current) use of oral hypoglycemic drugs; Z87.891 Personal history of nicotine dependence; Z88.1 Allergy status to other antibiotic agents; Z91.030 Bee allergy status
CPT/HCPCS: 36415; 80053; 82962; 85025; 93005; 94640; 96360; 96361; A9270; G0378; J7030; U0002; 99217; 99220; 99225